=== PATIENT | male | born 1980 | race Caucasian/White ===

== ENCOUNTER 2016-12-12 21:17 | Emergency (ER) | payer MEDICAID ==
[2016-12-12] MEDS ORDERED: Lidocaine 1% 20 ML MDV INJECT ONE (21:34)
--- NOTE | 2016-12-12 21:34 | EDM.PDOC ---
ED HPI GENERAL MEDICAL PROBLEM - General Chief Complaint: Laceration Stated Complaint: LACERATION LIP Time Seen by Provider: 12/12/16 21:29 Source of Information: Reports: Patient, RN - History of Present Illness INITIAL COMMENTS - FREE TEXT/NARRATIVE: He accidentally hit himself in the lower lip this evening with a piece of equipment. He suffered a fracture to tooth #9 as well as a laceration to the lower lip No LOC he denies other injury He reports last tetanus booster about a month ago. Lower Lip Pain Score (Numeric/FACES): 5 - Related Data Allergies Allergy/AdvReac Type Severity Reaction Status Date / Time ibuprofen Allergy Dizziness Verified 12/12/16 21:38 Home Meds: Home Meds . [No Known Home Meds] 12/12/16 [History] Past Medical History Cardiovascular History: Denies: CAD, Cardiomyopathy, Heart Failure Respiratory History: Denies: COPD Gastrointestinal History: Denies: Cirrhosis Endocrine/Metabolic History: Denies: Diabetes, Type I, Diabetes, Type II ED ROS GENERAL - Review of Systems Review Of Systems: See Below (no LOC; no other injury except to lip and tooth #9 ) ED EXAM, SKIN/RASH Exam: See Below Text/Narrative:: speech normal normal mentation head atraumatic lower lip just to the right of midline with a 1-2 cm irregular laceration with wound edges not approximated tooth #9 with fracture of about 20% distal medial tooth General Appearance: Alert, No Apparent Distress Course - Vital Signs Last Recorded V/S: Last Vital Signs Temp 98.5 F 12/12/16 21:35 Pulse 86 12/12/16 21:35 Resp 18 12/12/16 21:35 BP 137/96 H 12/12/16 21:35 Pulse Ox 97 12/12/16 21:35 - Orders/Labs/Meds Meds: Medications Discontinued Medications Generic Name Dose Route Start Last Admin Trade Name Jnúior PRN Reason Stop Dose Admin Lidocaine HCl 20 ml 12/12/16 21:34 12/12/16 21:41 Xylocaine 1% INJECT 12/12/16 21:35 20 ml ONETIME ONE Administration - Re-Assessments/Exams Free Text/Narrative Re-Assessment/Exam: 12/12/16 21:50 after wound cleansed, lidocaine 1% plain injected as infiltrative anesthesia and wound adequately closed using 5.0 nylon sutures; 2 simple interrupted sutures. Free Text/Narrative Re-Assessment/Exam: 12/12/16 21:52 he declines any pain medication Departure - Departure Time of Disposition: 21:51 Disposition: Home, Self-Care 01 Condition: Good Clinical Impression: Laceration of lip, Fracture of tooth - Discharge Information Referrals: PCP,None [Primary Care Provider] - Forms: ED Department Discharge Additional Instructions: follow u p with a dentist as soon as you can sutures out in about 7 days keep wound clean
[2016-12-12 22:04] VITALS: BP 133/83
== END 2016-12-12 22:01 | disposition home or self-care (01) ==
LOC: MW.ED 21:17
DX: S02.5XXA Fracture of tooth (traumatic), initial encounter for closed fracture (principal); S01.511A Laceration without foreign body of lip, initial encounter; Z88.6 Allergy status to analgesic agent; W22.8XXA Striking against or struck by other objects, initial encounter
CPT/HCPCS: 12011; 99282